=== PATIENT | male | born 1955 | race African-American/Black ===

== ENCOUNTER 2024-11-05 05:54 | Inpatient (IN) | payer OTHER, MEDICARE ==
[~2024-11-05] VITALS: Ht 177.8 cm; Wt 76.2 kg
[2024-11-05] VITALS (52 sets, daily range): BP systolic 101–132; BP diastolic 54–108; PULSE 97–147; RESP 14–34; TEMP 36.7–37.8; O2SAT 96–100
[2024-11-05] MEDS: ADENOSINE 3 MG/ML 2ML VIAL IV ONE ×3 (06:26→07:28)
[2024-11-05] MEDS ORDERED: LORAZEPAM 2MG/ML INJ IV ONE (06:30)
[2024-11-05] MEDS: METHYLPREDNISOLONE SOD SUCC 125MG/2ML (ACT-O-VIAL) IV STA (06:50)
[2024-11-05] MEDS: MAGNESIUM 2 G PREMIX 50 ML IV ONE (06:52)
[2024-11-05 07:02] LABS: BG BASE EXCESS -11.2 mmol/L (-2.0-3.0); BG CARBOXYHEMOGLOBIN 0.3 % (0.5-1.5); BG DEOXYHEMOGLOBIN 0.6 % (0.0-5.0); BG FRACTION INSPIRED OXYGEN 100; BG METHEMOGLOBIN 0.6 % (0.5-1.5); BG OXYGEN SATURATION 99.4 % (94.0-98.0); BG OXYHEMOGLOBIN 98.5 % (94.0-98.0); BG PCO2 82.9 mmHg (35.0-48.0); BG PH 7.041 (7.350-7.450); BG PO2 265.3 mmHg (83.0-108.0); BG SAMPLE SITE RIGHT RADIAL; BG TOTAL HEMOGLOBIN 18.5 g/dL (13.5-17.5); BG VENT MODE MASK - BIPAP
[2024-11-05 07:20] LABS: BASOPHILS % 0.5 % (0.0-2.0); DIFFERENTIAL COMMENT 0; EOSINOPHILS % 0.1 % (0.0-5.0); HEMATOCRIT. 55.9 % (42.0-52.0); HEMOGLOBIN. 17.9 g/dL (14.0-18.0); LYMPHOCYTES % 18.4 % (20.0-50.0); MEAN CORPUSCULAR HEMOGLOBIN 33.3 pg (28.0-32.0); MEAN PLATELET VOLUME 8.6 fl (7.4-10.4); MONOCYTES % 10.9 % (2.0-8.0); NEUTROPHILS % 70.1 % (40.0-76.0); PLATELET 227 x1000/uL (130-400); RED BLOOD CELL COUNT 5.38 mill/uL (4.7-6.1); RED CELL DISTRIBUTION WIDTH 16.4 % (11.6-14.6); WHITE BLOOD COUNT 15.1 x1000/uL (4.5-11.0)
[2024-11-05 07:28] LABS: CARBON DIOXIDE 25 mEq/L (21-32); CHLORIDE 91 mEq/L (98-107); POTASSIUM 4.9 mEq/L (3.5-5.1); SODIUM 132 mEq/L (136-145)
[2024-11-05 07:29] LABS: CALCIUM 9.6 mg/dL (8.7-10.4)
[2024-11-05 07:33] LABS: CREATININE 1.1 mg/dL (0.6-1.3); GLUCOSE 240 mg/dL (70-105); UREA NITROGEN BLOOD 10 mg/dL (9-23)
[2024-11-05 07:38] LABS: TROPONIN I HIGH SENSITIVITY 344 ng/L (3.0-53)
[2024-11-05] MEDS: IPRATROPIUM BROMIDE (0.02%) 0.5MG/2.5ML NEB HHN STA (07:48)
[2024-11-05] MEDS: ALBUTEROL (0.083%) 2.5MG/3ML NEB HHN STA (07:55)
[2024-11-05] MEDS ORDERED: MIDAZOLAM HCL 100 MG in DEXT 5% WATER 80 ML IV ONE (09:15)
[2024-11-05] MEDS: SODIUM CHLORIDE 0.9% (SEPSIS BOLUS) IV ONE (09:32)
[2024-11-05 09:41] LABS: BG BASE EXCESS -7.9 mmol/L (-2.0-3.0); BG CARBOXYHEMOGLOBIN 0.3 % (0.5-1.5); BG DEOXYHEMOGLOBIN 0.3 % (0.0-5.0); BG FRACTION INSPIRED OXYGEN 100; BG HCO3 ACT 23.1 mmol/L (21.0-28.0); BG METHEMOGLOBIN 0.7 % (0.5-1.5); BG OXYGEN SATURATION 99.7 % (94.0-98.0); BG OXYHEMOGLOBIN 98.7 % (94.0-98.0); BG PCO2 69.8 mmHg (35.0-48.0); BG PH 7.138 (7.350-7.450); BG PO2 491.4 mmHg (83.0-108.0); BG SAMPLE SITE RIGHT RADIAL; BG TOTAL HEMOGLOBIN 18.5 g/dL (13.5-17.5); BG VENT MODE VENT - AC
[2024-11-05] MEDS: SUCCINYLCHOLINE CHLORIDE 200MG/10ML IV ONE (09:57)
[2024-11-05] MEDS: ETOMIDATE 2MG/ML 10ML VIAL IV ONE (09:57)
[2024-11-05] MEDS: MIDAZOLAM HCL 100 MG in SODIUM CHLORIDE 0.9% 80 ML IV PRN (10:22)
[2024-11-05 10:41] LABS: ALANINE AMINOTRANSFERASE 222 IU/L (10-49); BILIRUBIN TOTAL 1.3 mg/dL (0.1-1.0); PROTEIN TOTAL 7.8 g/dL (6.0-8.3)
[2024-11-05 10:42] LABS: ALBUMIN 4.5 g/dL (3.2-4.8); ASPARTATE AMINOTRANSFERASE 573 IU/L (<34); BILIRUBIN DIRECT 0.8 mg/dL (<=3.0)
[2024-11-05 10:44] LABS: TROPONIN I HIGH SENSITIVITY 1659 ng/L (3.0-53)
[2024-11-05] MEDS: MEROPENEM 1GM/50ML DUPLEX 50 ML IV SCH ×2 (10:56→21:31)
[2024-11-05 10:59] LABS: LACTIC ACID 7.1 mmol/L (0.4-2.0)
[2024-11-05] MEDS ORDERED: LEVOFLOXACIN 500MG PREMIX 100 ML IV SCH (12:00)
[2024-11-05] MEDS: SODIUM CHLORIDE 0.9% 1,000 ML IV SCH (12:36)
[2024-11-05] MEDS: FAMOTIDINE 20MG/2ML VIAL IV SCH (12:36)
[2024-11-05] MEDS: METHYLPREDNISOLONE SOD SUCC 40MG/ML (ACT-O-VIAL) IV SCH (12:36)
[2024-11-05] MEDS: SODIUM CHLORIDE 0.9% 1,000 ML IV ONE (12:36)
[2024-11-05] MEDS: VANCOMYCIN 1G PREMIX 200 ML IV ONE (12:55)
[2024-11-05] MEDS: ENOXAPARIN 40MG/0.4ML SYR SUBCUT SCH (13:09)
[2024-11-05 14:12] LABS: BG CARBOXYHEMOGLOBIN 0.7 % (0.5-1.5); BG DEOXYHEMOGLOBIN 1.2 % (0.0-5.0); BG FRACTION INSPIRED OXYGEN 40; BG HCO3 ACT 15.5 mmol/L (21.0-28.0); BG METHEMOGLOBIN 0.2 % (0.5-1.5); BG OXYGEN SATURATION 98.8 % (94.0-98.0); BG OXYHEMOGLOBIN 97.9 % (94.0-98.0); BG PCO2 33.7 mmHg (35.0-48.0); BG PO2 144.3 mmHg (83.0-108.0); BG SAMPLE SITE RIGHT RADIAL; BG VENT MODE VENT - AC
[2024-11-05] MEDS: IPRATROPIUM BROMIDE (0.02%) 0.5MG/2.5ML NEB HHN SCH (14:27)
[2024-11-05] MEDS: ASPIRIN 81MG TABLET NG SCH (18:07)
[2024-11-05 20:13] LABS: D-DIMER 30.52 mg/L FEU (<0.50); INR 1.1; PROTHROMBIN TIME 12.1 sec (9.6-11.0)
[2024-11-06] VITALS (86 sets, daily range): BP systolic 103–150; BP diastolic 60–111; PULSE 85–109; RESP 19–31; TEMP 36.1–37.2; O2SAT 97–100
[2024-11-06] MEDS ORDERED: MIDAZOLAM 100MG/100ML PMX 100 ML IV PRN (02:00)
[2024-11-06] MEDS ORDERED: PROPOFOL 10MG/ML 100ML 100 ML IV PRN (08:30)
[2024-11-06 08:55] LABS: BG CARBOXYHEMOGLOBIN 0.3 % (0.5-1.5); BG DEOXYHEMOGLOBIN 0.9 % (0.0-5.0); BG FRACTION INSPIRED OXYGEN 40; BG HCO3 ACT 22.9 mmol/L (21.0-28.0); BG METHEMOGLOBIN 0.2 % (0.5-1.5); BG OXYGEN SATURATION 99.1 % (94.0-98.0); BG OXYHEMOGLOBIN 98.6 % (94.0-98.0); BG PCO2 43.7 mmHg (35.0-48.0); BG PH 7.337 (7.350-7.450); BG PO2 155.8 mmHg (83.0-108.0); BG SAMPLE SITE RIGHT RADIAL; BG TOTAL HEMOGLOBIN 17.9 g/dL (13.5-17.5); BG VENT MODE VENT - AC
[2024-11-06] MEDS: LIDOCAINE HCL 1% 10 MG/ML 10ML VIAL ONE (09:17)
[2024-11-06 11:33] LABS: BG BASE EXCESS 0.2 mmol/L (-2.0-3.0); BG CARBOXYHEMOGLOBIN 0.2 % (0.5-1.5); BG DEOXYHEMOGLOBIN 2.1 % (0.0-5.0); BG FRACTION INSPIRED OXYGEN 30; BG METHEMOGLOBIN 0.1 % (0.5-1.5); BG OXYGEN SATURATION 97.9 % (94.0-98.0); BG OXYHEMOGLOBIN 97.6 % (94.0-98.0); BG PCO2 41.1 mmHg (35.0-48.0); BG PH 7.402 (7.350-7.450); BG PO2 104.9 mmHg (83.0-108.0); BG SAMPLE SITE RIGHT RADIAL; BG TOTAL HEMOGLOBIN 16.6 g/dL (13.5-17.5); BG VENT MODE VENT - CPAP
[2024-11-06 12:32] LABS: CALCIUM 8.7 mg/dL (8.7-10.4); CARBON DIOXIDE 24 mEq/L (21-32); CHLORIDE 103 mEq/L (98-107); POTASSIUM 4.7 mEq/L (3.5-5.1); SODIUM 135 mEq/L (136-145)
[2024-11-06 12:36] LABS: HEMATOCRIT. 48.6 % (42.0-52.0); HEMOGLOBIN. 15.9 g/dL (14.0-18.0); MEAN CORPUSCULAR HEMOGLOBIN 33.5 pg (28.0-32.0); MEAN CORPUSCULAR HGB CONC 32.7 g/dL (31.0-37.0); MEAN CORPUSCULAR VOLUME 102.3 fL (80.0-94.0); MEAN PLATELET VOLUME 8.6 fl (7.4-10.4); PLATELET 150 x1000/uL (130-400); RED BLOOD CELL COUNT 4.75 mill/uL (4.7-6.1); RED CELL DISTRIBUTION WIDTH 16.3 % (11.6-14.6); WHITE BLOOD COUNT 12.5 x1000/uL (4.5-11.0)
[2024-11-06 12:37] LABS: CREATININE 1.2 mg/dL (0.6-1.3); GLUCOSE 157 mg/dL (70-105)
[2024-11-06 12:38] LABS: UREA NITROGEN BLOOD 16 mg/dL (9-23)
[2024-11-06 12:44] LABS: DIFFERENTIAL COMMENT 1
[2024-11-06] MEDS: THIAMINE HCL 100MG TABLET PO SCH (14:05)
[2024-11-06] MEDS: DOCUSATE SODIUM SUGAR FREE 100MG/10ML UDC NG SCH (14:06)
[2024-11-06] MEDS: SUCRALFATE 1G TABLET PO SCH (18:14)
[2024-11-06 18:16] LABS: FOLIC ACID (FOLATE) SERUM 5.57 ng/mL (>5.38)
[2024-11-06 18:17] LABS: VITAMIN B12 SERUM 982 pg/mL (211-911)
[2024-11-06 18:42] LABS: IRON 45 ug/dL (65-175)
[2024-11-06 18:44] LABS: TOTAL IRON BINDING CAPACITY 227 ug/dl (250-425)
[2024-11-06 20:05] LABS: CLARITY URINE TURBID (CLEAR); COLOR URINE DARK YELLOW (YELLOW); GLUCOSE URINE NEGATIVE (NEGATIVE); KETONES URINE TRACE (NEGATIVE); LEUKOCYTE ESTERASE URINE 3+ (NEGATIVE); NITRITE URINE NEGATIVE (NEGATIVE); OCCULT BLOOD URINE 3+ (NEGATIVE); PH URINE 5.5 (4.5-8.0); PROTEIN URINE 1+ (NEGATIVE); SPECIFIC GRAVITY URINE 1.015 (1.005-1.030)
[2024-11-06] MEDS: METHYLPREDNISOLONE SOD SUCC 40MG/ML (ACT-O-VIAL) IV SCH (21:03)
[2024-11-06] MEDS: PANTOPRAZOLE 40MG DR TABLET PO SCH (21:03)
[2024-11-06 21:10] LABS: BACTERIA URINE 3+
[2024-11-06 21:11] LABS: SQUAMOUS EPITHELIAL CELL URINE FEW /lpf (RARE/1+)
[2024-11-07] VITALS (63 sets, daily range): BP systolic 119–187; BP diastolic 83–121; PULSE 80–128; RESP 18–39; TEMP 36.4–36.8; O2SAT 94–100
[2024-11-07 06:07] LABS: TRIGLYCERIDE 130 mg/dL (0-150)
[2024-11-07 06:09] LABS: ALANINE AMINOTRANSFERASE 445 IU/L (10-49); ALBUMIN 3.5 g/dL (3.2-4.8); ASPARTATE AMINOTRANSFERASE 983 IU/L (<34); BILIRUBIN DIRECT 0.6 mg/dL (<=3.0); BILIRUBIN TOTAL 1.1 mg/dL (0.1-1.0); PREALBUMIN 6.2 mg/dl (10.0-40.0); PROTEIN TOTAL 6.2 g/dL (6.0-8.3)
[2024-11-07 06:44] LABS: HEPATITIS B SURFACE ANTIGEN NEGATIVE (Negative)
[2024-11-07 07:04] LABS: HEPATITIS A AB IGM NEGATIVE (Negative)
[2024-11-07 07:05] LABS: HEPATITIS B CORE AB IGM NEGATIVE (Negative)
[2024-11-07 07:06] LABS: HEPATITIS C AB REACTIVE (Pos) (Negative)
[2024-11-07 09:05] LABS: BG BASE EXCESS 1.2 mmol/L (-2.0-3.0); BG CARBOXYHEMOGLOBIN 0.4 % (0.5-1.5); BG DEOXYHEMOGLOBIN 1.2 % (0.0-5.0); BG FRACTION INSPIRED OXYGEN 32; BG HCO3 ACT 27.4 mmol/L (21.0-28.0); BG METHEMOGLOBIN 0.2 % (0.5-1.5); BG OXYGEN SATURATION 98.8 % (94.0-98.0); BG OXYHEMOGLOBIN 98.2 % (94.0-98.0); BG PCO2 48.3 mmHg (35.0-48.0); BG PH 7.371 (7.350-7.450); BG PO2 126.4 mmHg (83.0-108.0); BG SAMPLE SITE RIGHT RADIAL; BG TOTAL HEMOGLOBIN 16.9 g/dL (13.5-17.5); BG VENT MODE NASAL CANNULA
[2024-11-07] MEDS: METOPROLOL TARTRATE 25MG TABLET PO SCH (13:35)
[2024-11-07] MEDS: LABETALOL 5MG/ML 4ML INJ IV NR (14:18)
[2024-11-07] MEDS: METHYLPREDNISOLONE SOD SUCC 40MG/ML (ACT-O-VIAL) IV SCH (14:47)
[2024-11-07] MEDS: METHYLPREDNISOLONE SOD SUCC 125MG/2ML (ACT-O-VIAL) IV NR (16:13)
[2024-11-07 16:24] LABS: BG BASE EXCESS -2.9 mmol/L (-2.0-3.0); BG CARBOXYHEMOGLOBIN 0.1 % (0.5-1.5); BG DEOXYHEMOGLOBIN 3.5 % (0.0-5.0); BG FRACTION INSPIRED OXYGEN 40; BG HCO3 ACT 28.4 mmol/L (21.0-28.0); BG METHEMOGLOBIN 0.3 % (0.5-1.5); BG OXYGEN SATURATION 96.5 % (94.0-98.0); BG OXYHEMOGLOBIN 96.1 % (94.0-98.0); BG PCO2 78.7 mmHg (35.0-48.0); BG PH 7.175 (7.350-7.450); BG PO2 104.7 mmHg (83.0-108.0); BG SAMPLE SITE RIGHT RADIAL; BG TOTAL HEMOGLOBIN 17.9 g/dL (13.5-17.5); BG VENT MODE NASAL CANNULA
[2024-11-07] MEDS: IPRATROPIUM/ALBUTEROL 0.5-3(2.5)MG/3ML NEB HHN SCH (16:30)
[2024-11-07 16:55] LABS: ANISOCYTOSIS 1+; PLATELET ESTIMATE NORMAL
[2024-11-07] MEDS ORDERED: PREDNISONE 20MG TABLET PO SCH (17:00)
[2024-11-07] MEDS: LORAZEPAM 2MG/ML INJ IV NR (17:59)
[2024-11-07 18:01] LABS: BG BASE EXCESS -3.4 mmol/L (-2.0-3.0); BG CARBOXYHEMOGLOBIN 0.1 % (0.5-1.5); BG DEOXYHEMOGLOBIN 0.8 % (0.0-5.0); BG FRACTION INSPIRED OXYGEN 50; BG HCO3 ACT 24.6 mmol/L (21.0-28.0); BG METHEMOGLOBIN 0.2 % (0.5-1.5); BG OXYGEN SATURATION 99.2 % (94.0-98.0); BG OXYHEMOGLOBIN 98.9 % (94.0-98.0); BG PCO2 55.2 mmHg (35.0-48.0); BG PH 7.267 (7.350-7.450); BG PO2 166.2 mmHg (83.0-108.0); BG SAMPLE SITE RIGHT RADIAL; BG TOTAL HEMOGLOBIN 17.2 g/dL (13.5-17.5); BG VENT MODE MASK - BIPAP
[2024-11-07 18:36] LABS: TROPONIN I HIGH SENSITIVITY 2488 ng/L (3.0-53)
[2024-11-07] MEDS: CLONIDINE 0.1MG TABLET PO PRN (21:01)
[2024-11-07] MEDS: LORAZEPAM 2MG/ML INJ IV PRN (21:33)
[2024-11-07 23:54] LABS: BG BASE EXCESS -0.4 mmol/L (-2.0-3.0); BG CARBOXYHEMOGLOBIN 0.3 % (0.5-1.5); BG DEOXYHEMOGLOBIN 1.2 % (0.0-5.0); BG FRACTION INSPIRED OXYGEN 40; BG HCO3 ACT 27.3 mmol/L (21.0-28.0); BG METHEMOGLOBIN 0.3 % (0.5-1.5); BG OXYGEN SATURATION 98.8 % (94.0-98.0); BG OXYHEMOGLOBIN 98.2 % (94.0-98.0); BG PCO2 56.1 mmHg (35.0-48.0); BG PH 7.305 (7.350-7.450); BG PO2 140.5 mmHg (83.0-108.0); BG SAMPLE SITE RIGHT RADIAL; BG TOTAL HEMOGLOBIN 16.8 g/dL (13.5-17.5); BG VENT MODE MASK - BIPAP
[2024-11-08] VITALS (97 sets, daily range): BP systolic 84–165; BP diastolic 57–135; PULSE 59–102; RESP 19–40; TEMP 36.1–37; O2SAT 88–100
[2024-11-08] MEDS: HYDRALAZINE 20MG/ML VIAL IV PRN (01:36)
[2024-11-08] MEDS: DEXMEDETOMIDINE 400 MCG/100 ML 100 ML IV PRN (02:02)
[2024-11-08 06:08] LABS: ALANINE AMINOTRANSFERASE 547 IU/L (10-49); ALBUMIN 3.4 g/dL (3.2-4.8); ASPARTATE AMINOTRANSFERASE 714 IU/L (<34); BILIRUBIN DIRECT 0.6 mg/dL (<=3.0); BILIRUBIN TOTAL 1.1 mg/dL (0.1-1.0); PROTEIN TOTAL 6.3 g/dL (6.0-8.3)
[2024-11-08 06:23] LABS: HEPATITIS B SURFACE ANTIGEN NEGATIVE (Negative)
[2024-11-08 06:44] LABS: HEPATITIS A AB IGM NEGATIVE (Negative); HEPATITIS B CORE AB IGM NEGATIVE (Negative)
[2024-11-08 06:45] LABS: HEPATITIS C AB REACTIVE (Pos) (Negative)
[2024-11-08 09:28] LABS: BG BASE EXCESS 0.1 mmol/L (-2.0-3.0); BG CARBOXYHEMOGLOBIN 0.7 % (0.5-1.5); BG FRACTION INSPIRED OXYGEN 28; BG HCO3 ACT 26.5 mmol/L (21.0-28.0); BG METHEMOGLOBIN 0.2 % (0.5-1.5); BG OXYHEMOGLOBIN 95.1 % (94.0-98.0); BG PCO2 48.7 mmHg (35.0-48.0); BG PH 7.353 (7.350-7.450); BG PO2 86.8 mmHg (83.0-108.0); BG SAMPLE SITE RIGHT BRACHIAL; BG TOTAL HEMOGLOBIN 17.1 g/dL (13.5-17.5); BG VENT MODE MASK - BIPAP
[2024-11-09] VITALS (97 sets, daily range): BP systolic 97–163; BP diastolic 62–139; PULSE 54–104; RESP 15–41; TEMP 36.4–36.8; O2SAT 88–100
[2024-11-09 06:12] LABS: ALBUMIN 3.4 g/dL (3.2-4.8)
[2024-11-09 06:13] LABS: ALANINE AMINOTRANSFERASE 389 IU/L (10-49); ASPARTATE AMINOTRANSFERASE 254 IU/L (<34); BILIRUBIN DIRECT 0.6 mg/dL (<=3.0); BILIRUBIN TOTAL 1.2 mg/dL (0.1-1.0); PROTEIN TOTAL 6.3 g/dL (6.0-8.3)
[2024-11-09 07:14] LABS: HEPATITIS B SURFACE ANTIGEN NEGATIVE (Negative)
[2024-11-09 07:35] LABS: HEPATITIS A AB IGM NEGATIVE (Negative)
[2024-11-09 07:36] LABS: HEPATITIS B CORE AB IGM NEGATIVE (Negative); HEPATITIS C AB REACTIVE (Pos) (Negative)
[2024-11-09 08:41] LABS: HEMATOCRIT. 46.9 % (42.0-52.0); HEMOGLOBIN. 15.2 g/dL (14.0-18.0); MEAN CORPUSCULAR HEMOGLOBIN 33.8 pg (28.0-32.0); MEAN CORPUSCULAR HGB CONC 32.5 g/dL (31.0-37.0); MEAN CORPUSCULAR VOLUME 104.2 fL (80.0-94.0); RED CELL DISTRIBUTION WIDTH 17.1 % (11.6-14.6); WHITE BLOOD COUNT 11.4 x1000/uL (4.5-11.0)
[2024-11-09 08:58] LABS: BG BASE EXCESS 0.2 mmol/L (-2.0-3.0); BG CARBOXYHEMOGLOBIN 0.7 % (0.5-1.5); BG DEOXYHEMOGLOBIN 5.9 % (0.0-5.0); BG FRACTION INSPIRED OXYGEN 28; BG HCO3 ACT 25.9 mmol/L (21.0-28.0); BG OXYGEN SATURATION 94.1 % (94.0-98.0); BG OXYHEMOGLOBIN 93.4 % (94.0-98.0); BG PCO2 45.6 mmHg (35.0-48.0); BG PH 7.373 (7.350-7.450); BG PO2 75.2 mmHg (83.0-108.0); BG SAMPLE SITE RIGHT RADIAL; BG TOTAL HEMOGLOBIN 16.7 g/dL (13.5-17.5); BG VENT MODE MASK - BIPAP
[2024-11-09 09:06] LABS: DIFFERENTIAL COMMENT 1
[2024-11-09 10:23] LABS: CHLORIDE 111 mEq/L (98-107); POTASSIUM 5.2 mEq/L (3.5-5.1); SODIUM 149 mEq/L (136-145)
[2024-11-09 10:24] LABS: CARBON DIOXIDE 28 mEq/L (21-32)
[2024-11-09 10:29] LABS: CREATININE 1.1 mg/dL (0.6-1.3); GLUCOSE 151 mg/dL (70-105); UREA NITROGEN BLOOD 30 mg/dL (9-23)
[2024-11-09] MEDS: METHYLPREDNISOLONE SOD SUCC 125MG/2ML (ACT-O-VIAL) IV SCH (11:12)
[2024-11-09] MEDS: THEOPHYLLINE ANHYDROUS 80MG/15ML ORAL SYR PO SCH ×2 (11:13→20:55)
[2024-11-09 12:01] LABS: ANISOCYTOSIS 1+; MEAN PLATELET VOLUME 10.2 fl (7.4-10.4); PLATELET 187 x1000/uL (130-400); PLATELET ESTIMATE NORMAL
[2024-11-09] MEDS: DEXT 5%/0.45% NACL 1000ML 1,000 ML IV SCH (12:42)
[2024-11-09] MEDS: ISOSORBIDE MONONITRATE 30MG TABLET SR 24HR PO SCH (14:36)
[2024-11-09] MEDS: FUROSEMIDE 20MG/2ML VIAL IVP NR (14:36)
[2024-11-09] MEDS: ENOXAPARIN 80MG/0.8ML SYR SUBCUT SCH (20:52)
[2024-11-09] MEDS: ISOSORBIDE MONONITRATE 30MG TABLET SR 24HR PO NR (21:34)
[2024-11-10] VITALS (71 sets, daily range): BP systolic 101–162; BP diastolic 63–93; PULSE 48–101; RESP 13–26; TEMP 36.2–37.1; O2SAT 93–100
[2024-11-10 06:10] LABS: HEMATOCRIT. 43.6 % (42.0-52.0); HEMOGLOBIN. 14.4 g/dL (14.0-18.0); MEAN CORPUSCULAR HEMOGLOBIN 33.7 pg (28.0-32.0); MEAN CORPUSCULAR HGB CONC 33.1 g/dL (31.0-37.0); MEAN PLATELET VOLUME 9.7 fl (7.4-10.4); PLATELET 205 x1000/uL (130-400); RED BLOOD CELL COUNT 4.28 mill/uL (4.7-6.1); RED CELL DISTRIBUTION WIDTH 16.2 % (11.6-14.6); WHITE BLOOD COUNT 8.8 x1000/uL (4.5-11.0)
[2024-11-10 07:10] LABS: CARBON DIOXIDE 32 mEq/L (21-32); CHLORIDE 106 mEq/L (98-107); POTASSIUM 3.8 mEq/L (3.5-5.1); SODIUM 148 mEq/L (136-145)
[2024-11-10 07:11] LABS: CALCIUM 8.9 mg/dL (8.7-10.4)
[2024-11-10 07:16] LABS: ALANINE AMINOTRANSFERASE 276 IU/L (10-49); CREATININE 0.9 mg/dL (0.6-1.3); GLUCOSE 206 mg/dL (70-105); UREA NITROGEN BLOOD 26 mg/dL (9-23)
[2024-11-10 07:17] LABS: ALBUMIN 3.3 g/dL (3.2-4.8); ASPARTATE AMINOTRANSFERASE 111 IU/L (<34)
[2024-11-10 07:18] LABS: BILIRUBIN DIRECT 0.6 mg/dL (<=3.0); BILIRUBIN TOTAL 1.3 mg/dL (0.1-1.0); PROTEIN TOTAL 6.2 g/dL (6.0-8.3)
[2024-11-10 08:01] LABS: HEPATITIS B SURFACE ANTIGEN NEGATIVE (Negative)
[2024-11-10 08:02] LABS: DIFFERENTIAL COMMENT 1
[2024-11-10 08:21] LABS: HEPATITIS A AB IGM NEGATIVE (Negative)
[2024-11-10 08:22] LABS: HEPATITIS B CORE AB IGM NEGATIVE (Negative); HEPATITIS C AB REACTIVE (Pos) (Negative)
[2024-11-10] MEDS: ISOSORBIDE MONONITRATE 60MG TABLET SR 24HR PO SCH (08:52)
[2024-11-10 09:13] LABS: BG BASE EXCESS 5.2 mmol/L (-2.0-3.0); BG CARBOXYHEMOGLOBIN 0.6 % (0.5-1.5); BG DEOXYHEMOGLOBIN 4.3 % (0.0-5.0); BG FRACTION INSPIRED OXYGEN 28; BG HCO3 ACT 30.1 mmol/L (21.0-28.0); BG METHEMOGLOBIN 0.3 % (0.5-1.5); BG OXYGEN SATURATION 95.7 % (94.0-98.0); BG OXYHEMOGLOBIN 94.8 % (94.0-98.0); BG PCO2 45.2 mmHg (35.0-48.0); BG PH 7.442 (7.350-7.450); BG PO2 79.1 mmHg (83.0-108.0); BG SAMPLE SITE RIGHT RADIAL; BG TOTAL HEMOGLOBIN 14.7 g/dL (13.5-17.5); BG VENT MODE MASK - BIPAP
[2024-11-10 11:58] LABS: ANISOCYTOSIS 1+; PLATELET ESTIMATE NORMAL
[2024-11-10] MEDS ORDERED: FUROSEMIDE 40MG/4ML VIAL IVP SCH (19:00)
[2024-11-11] VITALS (38 sets, daily range): BP systolic 120–169; BP diastolic 65–91; PULSE 76–111; RESP 15–27; TEMP 36.8–37.2; O2SAT 89–98
[2024-11-11 05:56] LABS: HEMATOCRIT. 43.6 % (42.0-52.0); HEMOGLOBIN. 14.7 g/dL (14.0-18.0); MEAN CORPUSCULAR HEMOGLOBIN 34.2 pg (28.0-32.0); MEAN CORPUSCULAR HGB CONC 33.7 g/dL (31.0-37.0); MEAN CORPUSCULAR VOLUME 101.5 fL (80.0-94.0); MEAN PLATELET VOLUME 9.8 fl (7.4-10.4); PLATELET 250 x1000/uL (130-400); RED BLOOD CELL COUNT 4.29 mill/uL (4.7-6.1); RED CELL DISTRIBUTION WIDTH 16.3 % (11.6-14.6); WHITE BLOOD COUNT 9.4 x1000/uL (4.5-11.0)
[2024-11-11 06:22] LABS: CHLORIDE 101 mEq/L (98-107); SODIUM 145 mEq/L (136-145)
[2024-11-11 06:23] LABS: CARBON DIOXIDE 34 mEq/L (21-32)
[2024-11-11 06:24] LABS: CALCIUM 8.8 mg/dL (8.7-10.4)
[2024-11-11 06:28] LABS: CREATININE 0.8 mg/dL (0.6-1.3); GLUCOSE 146 mg/dL (70-105)
[2024-11-11 06:29] LABS: ALANINE AMINOTRANSFERASE 206 IU/L (10-49); UREA NITROGEN BLOOD 16 mg/dL (9-23)
[2024-11-11 06:30] LABS: ALBUMIN 3.1 g/dL (3.2-4.8); ASPARTATE AMINOTRANSFERASE 86 IU/L (<34)
[2024-11-11 06:31] LABS: BILIRUBIN TOTAL 1.1 mg/dL (0.1-1.0); PROTEIN TOTAL 6.1 g/dL (6.0-8.3)
[2024-11-11 06:49] LABS: DIFFERENTIAL COMMENT 1
[2024-11-11 07:08] LABS: POTASSIUM 2.7 mEq/L (3.5-5.1)
[2024-11-11] MEDS ORDERED: KCL 20MEQ/100ML PREMIX 100 ML IV SCH (07:30)
[2024-11-11] MEDS: POTASSIUM CHLORIDE 20MEQ TABLET SR PO NR (07:51)
[2024-11-11] MEDS: POTASSIUM CHLORIDE 40MEQ in DEXT 5% WATER 250ML IV NR ×2 (08:08→11:54)
[2024-11-11] MEDS ORDERED: IODIXANOL 320MG/ML 100 ML BOTTLE IV ONE ×2 (12:28→13:48)
[2024-11-11] MEDS ORDERED: LIDOCAINE HCL 1% 20ML VIAL ONE (12:28)
[2024-11-11] MEDS ORDERED: DIPHENHYDRAMINE 50MG/ML VIAL ONE (12:58)
[2024-11-11] MEDS ORDERED: METHYLPREDNISOLONE SOD SUCC 125MG/2ML (ACT-O-VIAL) ONE (13:00)
[2024-11-11] MEDS ORDERED: MIDAZOLAM HCL 2 MG/2 ML VIAL ONE (13:04)
[2024-11-11] MEDS ORDERED: FENTANYL CITRATE/PF 50MCG/ML 2ML VIAL ONE (13:04)
[2024-11-11] MEDS ORDERED: VERAPAMIL HCL 2.5 MG/1 ML 2ML VIAL IV ONE (13:04)
[2024-11-11] MEDS ORDERED: HEPARIN 1000 UNITS/ML 10ML ONE (13:05)
[2024-11-11] MEDS ORDERED: HYDRALAZINE 20MG/ML VIAL ONE (13:21)
[2024-11-11] MEDS ORDERED: ATROPINE SULFATE 1MG/10ML SYR IV PRN (14:30)
[2024-11-11] MEDS ORDERED: ACETAMINOPHEN 325MG TABLET PO PRN (14:30)
[2024-11-11 14:49] LABS: ANISOCYTOSIS 1+; PLATELET ESTIMATE NORMAL
[2024-11-11] MEDS ORDERED: POLYVINYL ALCOHOL OPHTH DROPS 15ML EACHEYE PRN (18:00)
[2024-11-11] MEDS: ONDANSETRON HCL 4MG/2ML INJ IV PRN (19:33)
[2024-11-11] MEDS: HYDROXYZINE 25MG TABLET PO NR (21:33)
[2024-11-11] MEDS: METHYLPREDNISOLONE SOD SUCC 40MG/ML (ACT-O-VIAL) IV SCH (21:41)
[2024-11-11] MEDS ORDERED: ALPRAZOLAM 0.25 MG TABLET PO PRN (22:45)
[2024-11-12] VITALS (8 sets, daily range): BP systolic 126–161; BP diastolic 85–98; PULSE 81–106; RESP 18–20; TEMP 36.4–36.6; O2SAT 93–98
[2024-11-12 07:27] LABS: CARBON DIOXIDE 31 mEq/L (21-32); CHLORIDE 101 mEq/L (98-107); POTASSIUM 3.8 mEq/L (3.5-5.1); SODIUM 141 mEq/L (136-145)
[2024-11-12 07:28] LABS: CALCIUM 8.8 mg/dL (8.7-10.4)
[2024-11-12 07:32] LABS: CREATININE 0.8 mg/dL (0.6-1.3)
[2024-11-12 07:33] LABS: GLUCOSE 121 mg/dL (70-105); UREA NITROGEN BLOOD 13 mg/dL (9-23)
[2024-11-12 07:34] LABS: ALANINE AMINOTRANSFERASE 167 IU/L (10-49); ALBUMIN 3.1 g/dL (3.2-4.8); ASPARTATE AMINOTRANSFERASE 90 IU/L (<34)
[2024-11-12 07:35] LABS: BILIRUBIN TOTAL 1.2 mg/dL (0.1-1.0); PROTEIN TOTAL 5.9 g/dL (6.0-8.3)
[2024-11-12 07:36] LABS: HEMATOCRIT. 44.8 % (42.0-52.0); HEMOGLOBIN. 14.5 g/dL (14.0-18.0); MEAN CORPUSCULAR HEMOGLOBIN 32.6 pg (28.0-32.0); MEAN CORPUSCULAR HGB CONC 32.5 g/dL (31.0-37.0); MEAN CORPUSCULAR VOLUME 100.5 fL (80.0-94.0); MEAN PLATELET VOLUME 9.6 fl (7.4-10.4); PLATELET 274 x1000/uL (130-400); RED BLOOD CELL COUNT 4.45 mill/uL (4.7-6.1); RED CELL DISTRIBUTION WIDTH 15.9 % (11.6-14.6); WHITE BLOOD COUNT 11.7 x1000/uL (4.5-11.0)
[2024-11-12 07:53] LABS: DIFFERENTIAL COMMENT 1
[2024-11-12 11:24] LABS: PLATELET ESTIMATE NORMAL
[2024-11-12 14:54] LABS: BG BASE EXCESS 9.7 mmol/L (-2.0-3.0); BG DEOXYHEMOGLOBIN 19.9 % (0.0-5.0); BG FRACTION INSPIRED OXYGEN 21; BG HCO3 ACT 34.4 mmol/L (21.0-28.0); BG OXYGEN SATURATION 79.9 % (94.0-98.0); BG OXYHEMOGLOBIN 79.1 % (94.0-98.0); BG PCO2 45.7 mmHg (35.0-48.0); BG PH 7.494 (7.350-7.450); BG PO2 43.2 mmHg (83.0-108.0); BG SAMPLE SITE LEFT RADIAL; BG TOTAL HEMOGLOBIN 15.7 g/dL (13.5-17.5); BG VENT MODE ROOM AIR
[2024-11-12] MEDS ORDERED: IPRATROPIUM/ALBUTEROL 0.5-3(2.5)MG/3ML NEB HHN SCH (18:00)
[2024-11-12] MEDS: TERBUTALINE SULFATE 1MG/ML VIAL SUBCUT NR (18:04)
[2024-11-12] MEDS: METHYLPREDNISOLONE SOD SUCC 40MG/ML (ACT-O-VIAL) IV SCH (21:09)
[2024-11-13] VITALS: BP 156/87; PULSE 84; RESP 20; TEMP 36.3; O2SAT 99
[2024-11-13 08:00] VITALS: BP 167/92; PULSE 18; RESP 18; TEMP 35.9; O2SAT 100
[2024-11-13 11:18] LABS: HEMATOCRIT. 45.2 % (42.0-52.0); HEMOGLOBIN. 14.8 g/dL (14.0-18.0); MEAN CORPUSCULAR HEMOGLOBIN 32.5 pg (28.0-32.0); MEAN CORPUSCULAR HGB CONC 32.8 g/dL (31.0-37.0); MEAN CORPUSCULAR VOLUME 99.2 fL (80.0-94.0); MEAN PLATELET VOLUME 9.4 fl (7.4-10.4); PLATELET 262 x1000/uL (130-400); RED BLOOD CELL COUNT 4.56 mill/uL (4.7-6.1); RED CELL DISTRIBUTION WIDTH 15.7 % (11.6-14.6); WHITE BLOOD COUNT 13.7 x1000/uL (4.5-11.0)
[2024-11-13 11:24] LABS: DIFFERENTIAL COMMENT 1
[2024-11-13 11:30] LABS: CHLORIDE 99 mEq/L (98-107); SODIUM 138 mEq/L (136-145)
[2024-11-13 11:31] LABS: CARBON DIOXIDE 33 mEq/L (21-32)
[2024-11-13 11:32] LABS: CALCIUM 8.6 mg/dL (8.7-10.4)
[2024-11-13 11:36] LABS: AMMONIA 23 uMol/L (<32); CREATININE 0.8 mg/dL (0.6-1.3); GLUCOSE 122 mg/dL (70-105)
[2024-11-13 11:37] LABS: UREA NITROGEN BLOOD 18 mg/dL (9-23)
[2024-11-13 11:38] LABS: ALANINE AMINOTRANSFERASE 145 IU/L (10-49); ASPARTATE AMINOTRANSFERASE 83 IU/L (<34)
[2024-11-13 11:39] LABS: BILIRUBIN TOTAL 1.4 mg/dL (0.1-1.0); PROTEIN TOTAL 5.4 g/dL (6.0-8.3)
[2024-11-13 12:00] VITALS: BP 148/86; PULSE 70; RESP 18; TEMP 35.9; O2SAT 97
[2024-11-13 16:00] VITALS: BP 157/90; PULSE 70; RESP 18; TEMP 35.6; O2SAT 95
[2024-11-13 17:06] VITALS: BP 157/90; PULSE 70; TEMP 96.5; O2SAT 95
[2024-11-13 18:56] LABS: PLATELET ESTIMATE NORMAL
[2024-11-14] MEDS ORDERED: PREDNISONE 20MG TABLET PO SCH (09:00)
[2024-11-14] MEDS ORDERED: METOPROLOL SUCCINATE 50MG ER TABLET PO SCH (09:00)
== END 2024-11-13 18:05 | disposition short-term general hospital (02) | DRG 871 ==
LOC: ER 05:54 → EDBEDREQSVC 09:27 → MICUSO 09:34 → EDBEDREQ 09:35 → EDBEDREQTM 09:35 → 8WST 11-11 23:08
PROVIDERS: ADMIT Internal Medicine; ATTEND Internal Medicine
PROC: 05HY33Z Insertion of Infusion Device into Upper Vein, Percutaneous Approach (ICD-10-PCS; principal; 2024-11-05)
PROC: B54MZZA Ultrasonography of Right Upper Extremity Veins, Guidance (ICD-10-PCS; 2024-11-05)
PROC: 5A09357 Assistance with Respiratory Ventilation, Less than 24 Consecutive Hours, Continuous Positive Airway Pressure (ICD-10-PCS; 2024-11-05)
PROC: 5A1945Z Respiratory Ventilation, 24-96 Consecutive Hours (ICD-10-PCS; 2024-11-05)
PROC: 0BH17EZ Insertion of Endotracheal Airway into Trachea, Via Natural or Artificial Opening (ICD-10-PCS; 2024-11-05)
PROC: 5A09357 Assistance with Respiratory Ventilation, Less than 24 Consecutive Hours, Continuous Positive Airway Pressure (ICD-10-PCS; 2024-11-07)
PROC: 5A09457 Assistance with Respiratory Ventilation, 24-96 Consecutive Hours, Continuous Positive Airway Pressure (ICD-10-PCS; 2024-11-08)
PROC: 4A023N7 Measurement of Cardiac Sampling and Pressure, Left Heart, Percutaneous Approach (ICD-10-PCS; 2024-11-11)
PROC: B211YZZ Fluoroscopy of Multiple Coronary Arteries using Other Contrast (ICD-10-PCS; 2024-11-11)
DX: A41.9 Sepsis, unspecified organism (principal); G93.41 Metabolic encephalopathy; J96.02 Acute respiratory failure with hypercapnia; I21.A1 Myocardial infarction type 2; I50.21 Acute systolic (congestive) heart failure; E87.29 Other acidosis; E87.1 Hypo-osmolality and hyponatremia; I47.19 Other supraventricular tachycardia; J44.1 Chronic obstructive pulmonary disease with (acute) exacerbation; C34.90 Malignant neoplasm of unspecified part of unspecified bronchus or lung; E87.0 Hyperosmolality and hypernatremia; I42.0 Dilated cardiomyopathy; N39.0 Urinary tract infection, site not specified; R65.20 Severe sepsis without septic shock; J06.9 Acute upper respiratory infection, unspecified; E86.1 Hypovolemia; B19.20 Unspecified viral hepatitis C without hepatic coma; E11.65 Type 2 diabetes mellitus with hyperglycemia; K76.0 Fatty (change of) liver, not elsewhere classified; D72.821 Monocytosis (symptomatic); E87.6 Hypokalemia; F10.10 Alcohol abuse, uncomplicated; I11.0 Hypertensive heart disease with heart failure; Y90.9 Presence of alcohol in blood, level not specified; I25.10 Atherosclerotic heart disease of native coronary artery without angina pectoris; Z99.81 Dependence on supplemental oxygen; Z79.02 Long term (current) use of antithrombotics/antiplatelets; Z85.118 Personal history of other malignant neoplasm of bronchus and lung; Z86.74 Personal history of sudden cardiac arrest; Z87.891 Personal history of nicotine dependence; Z88.0 Allergy status to penicillin; Z92.3 Personal history of irradiation; Z95.5 Presence of coronary angioplasty implant and graft
CPT/HCPCS: 31500; 36415; 36573; 36600; 71045; 76700; 78580; 80048; 80053; 80076; 81003; 82140; 82248; 82375; 82607; 82728; 82746; 82805; 82962; 83036; 83540; 83550; 83605; 83880; 84134; 84145; 84478; 84484; 85025; 85044; 85379; 86705; 86709; 87340; 87804; 92610; 93005; 93306; 93458; 93970; 94002; 94003; 94070; 94640; 94660; 94664; 97162; 97166; 99291; A4565; A4606; C1725; C1769; C1887; C1893; J0153; J0360; J1200; J1644; J1650; J1940; J2003; J2060; J2185; J2250; J2405; J2919; J2920; J3010; J3105; J3475; J3480; J3490; J7030; J7050; J7060; Q9957; Q9967